=== PATIENT | female | born 1975 | race African-American/Black ===

== ENCOUNTER 2018-04-16 13:04 | Emergency (ER) | payer OTHER ==
[~2018-04-16] VITALS: Ht 177.8 cm; Wt 99.8 kg
[2018-04-16 13:16] VITALS: Ht 177.8 cm; Wt 99.8 kg
[2018-04-16 15:38] VITALS: BP 114/64
== END 2018-04-16 15:38 | disposition home or self-care (01) ==
LOC: ED 13:04
DX: B37.3 Candidiasis of vulva and vagina (principal)

== ENCOUNTER 2018-05-05 18:15 | Emergency (ER) | payer OTHER ==
[~2018-05-05] VITALS: Ht 177.8 cm; Wt 93.9 kg
[2018-05-05 18:34] VITALS: BP 163/63; Ht 177.8 cm; Wt 93.9 kg
== END 2018-05-05 20:44 | disposition left against medical advice (07) ==
LOC: ED 18:15
DX: Z53.21 Procedure and treatment not carried out due to patient leaving prior to being seen by health care provider (principal)

== ENCOUNTER 2018-05-28 15:57 | Emergency (ER) | payer OTHER ==
[~2018-05-28] VITALS: Ht 175.3 cm; Wt 96.2 kg
[2018-05-28 16:17] VITALS: Ht 175.3 cm; Wt 96.2 kg
[2018-05-28 19:53] LABS: microscopic required? NO
[2018-05-28 19:54] LABS: BASOPHIL % 0.7 % (0-2); PLATELET COUNT 214 x10^3mcL (130-400); RED CELL DISTRIBUTION WIDTH 14.5 % (11.5-14.5)
[2018-05-28 20:06] LABS: CALCIUM 8.4 mg/dL (8.5-10.1); CARBON DIOXIDE 28.6 mmol/L (21-32); CHLORIDE SERUM 105 mmol/L (98-107); CREATININE SERUM 0.8 mg/dL (0.6-1.0); GFR1 > 60 mL/min; GLUCOSE SERUM 83 mg/dL (74-106); SODIUM SERUM 140 mmol/L (136-145)
[2018-05-28 20:06] LABS: urine erythrocyte NEGATIVE (NEGATIVE)
[2018-05-28 20:10] LABS: ALKALINE PHOSPHATASE 75 U/L (46-116); ALT/SGPT 7 U/L (14-59); AST/SGOT 13 U/L (15-37); BILIRUBIN TOTAL 0.22 mg/dL (0.20-1.00); LIPASE 118 IU/L (73-393); TOTAL PROTEIN, SERUM 7.2 g/dL (6.4-8.2)
[2018-05-28 20:18] LABS: ALBUMIN 3.2 g/dL (3.4-5.0)
[2018-05-28 23:06] VITALS: BP 130/71
== END 2018-05-28 23:06 | disposition home or self-care (01) ==
LOC: ED 15:57
PROVIDERS: Emergency Medicine
DX: N76.0 Acute vaginitis (principal); J45.909 Unspecified asthma, uncomplicated
CPT/HCPCS: 87491; 87591; J0696; J2001; Q0162

== ENCOUNTER 2018-06-30 09:15 | Emergency (ER) | payer OTHER ==
[~2018-06-30] VITALS: Ht 175.3 cm; Wt 96.6 kg
[2018-06-30 09:20] VITALS: Ht 175.3 cm; Wt 96.6 kg
[2018-06-30 10:32] LABS: BASOPHIL % 0.8 % (0-2); PLATELET COUNT 222 x10^3mcL (130-400); RED CELL DISTRIBUTION WIDTH 14.4 % (11.5-14.5)
[2018-06-30 10:43] LABS: ALBUMIN 3.1 g/dL (3.4-5.0); ALKALINE PHOSPHATASE 76 U/L (46-116); ALT/SGPT 18 U/L (14-59); AST/SGOT 11 U/L (15-37); BILIRUBIN TOTAL 0.33 mg/dL (0.20-1.00); CALCIUM 8.7 mg/dL (8.5-10.1); CARBON DIOXIDE 25.9 mmol/L (21-32); CHLORIDE SERUM 106 mmol/L (98-107); CREATININE SERUM 0.8 mg/dL (0.6-1.0); GFR1 > 60 mL/min; GLUCOSE SERUM 98 mg/dL (74-106); POTASSIUM SERUM 4.4 mmol/L (3.5-5.1); SODIUM SERUM 139 mmol/L (136-145); TOTAL PROTEIN, SERUM 7.4 g/dL (6.4-8.2)
[2018-06-30 11:26] VITALS: BP 136/81
== END 2018-06-30 11:26 | disposition home or self-care (01) ==
LOC: ED 09:15
PROVIDERS: Specialist
DX: D64.9 Anemia, unspecified (principal); F17.210 Nicotine dependence, cigarettes, uncomplicated; F43.9 Reaction to severe stress, unspecified; J45.909 Unspecified asthma, uncomplicated; M54.30 Sciatica, unspecified side; M41.9 Scoliosis, unspecified
CPT/HCPCS: 36415